=== PATIENT | female | born 1970 | race Caucasian/White ===

== ENCOUNTER 2022-12-02 07:30 | Outpatient (RCR) | payer OTHER, SELFPAY | END 2023-04-01 23:59 | disposition home or self-care (01) | PROVIDERS: PCP Surgery; Visit Provider Family Medicine | DX: S76.911A Strain of unspecified muscles, fascia and tendons at thigh level, right thigh, initial encounter (principal); M25.451 Effusion, right hip; M25.551 Pain in right hip; M25.651 Stiffness of right hip, not elsewhere classified; R53.1 Weakness; Z74.09 Other reduced mobility; Z51.89 Encounter for other specified aftercare | CPT/HCPCS: 97110; 97140; 97162 ==

== ENCOUNTER 2023-09-20 09:13 | Outpatient (CLI) | payer BC, SELFPAY | END 2023-09-20 09:14 | disposition home or self-care (01) | LOC: NFLDUCREF 09:14 | PROVIDERS: PCP Surgery; Visit Provider Nurse Practitioner | DX: M79.671 Pain in right foot (principal) | CPT/HCPCS: 84550 ==